=== PATIENT | male | born 1965 | race Two or more races ===

== ENCOUNTER 2018-05-29 06:47 | Day surgery (SDC) | payer MEDICAID ==
[2018-05-27 11:06] LABS: Basophils % (auto) 0.4 % (0.0-2.0); Lymphocytes # (auto) 2.5 uL; Nucleated Red Blood Cells % 0.1 %; Red Cell Distribution Width 12.7 % (11.8-14.3)
[2018-05-27 11:09] LABS: Basophils # (auto) 0 uL; Eosinophils # (auto) 0.2 uL; Eosinophils % (auto) 1.7 % (0.0-7.0); Hematocrit 53.9 % (41.0-53.0); Hemoglobin 18.3 g/dL (13.5-17.5); Lymphocytes % (auto) 20.7 % (10.0-50.0); Mean Corpuscular Hemoglobin 30.6 pg (28.0-32.0); Mean Corpuscular Hgb Conc. 33.9 g/dL (32.0-36.0); Mean Corpuscular Volume 90.1 fL (80.0-100.0); Monocytes # (auto) 0.9 uL; Monocytes % (auto) 7.6 % (0.0-12.0); Neutrophils # (auto) 8.5 uL; Neutrophils % (auto) 69.6 % (37.0-80.0); Platelet Count (auto) 252 10^3/uL (140-450); Red Blood Cells 5.98 10^6/uL (4.5-5.90); White Blood Cell 12.2 10^3/uL (4.4-10.8)
[2018-05-27 11:13] LABS: Urine Bacteria FEW /hpf (None Seen); Urine Blood Negative /uL (Negative); Urine Specific Gravity 1.024 (1.001-1.035); Urine WBC 1 /hpf (0 - 3)
[2018-05-27 11:16] LABS: INR 1.01 (0.9-1.15); Partial Thromboplastin Time 25.7 sec (23.78-33.04); Prothrombin Time 10.8 sec (9.27-12.13)
[2018-05-27 11:29] LABS: Potassium 4.3 mmol/L (3.5-5.1)
[2018-05-27 11:43] LABS: Albumin 3.9 g/dL (3.4-5.0); BUN/Creatinine Ratio 14.8; Bilirubin, Total 1.1 mg/dL (0.2-1.0); Calcium 9.8 mg/dL (8.5-10.1); Total Protein 8.5 g/dL (6.4-8.2)
[~2018-05-29] VITALS: Ht 172.7 cm; Wt 108.9 kg
[~2018-05-29 06:47] MED LIST: HYDR-4683 PO; LISI10TA6 PO; METF-370 PO
[2018-05-29] MEDS ORDERED: CLINDAMYCIN 600MG IV 50 ML IV ONE (07:58)
[2018-05-29] MEDS ORDERED: BUPIVACAINE 0.75% INJ 10ML MPV SDV IJ ONE ×3 (08:31→09:41)
[2018-05-29] MEDS ORDERED: NEOMYCIN-BACITRACIN-POLYM 15GM TOP OINT TOP ONE (08:33)
[2018-05-29] MEDS ORDERED: MIDAZOLAM HCL 1MG/1ML-2 ML VIAL ONE (08:56)
[2018-05-29] MEDS ORDERED: MEPERIDINE HCL (50 MG/ML) 1 ML VIAL ONE (08:56)
[2018-05-29] MEDS ORDERED: DEXAMETHASONE SOD PHOS 10MG/1ML VIAL INJ ONE (09:14)
[2018-05-29] MEDS ORDERED: PROPOFOL 10 MG/ML 20 ML IV ONE (09:14)
[2018-05-29] MEDS ORDERED: SUCCINYLCHOLINE CHLORIDE 20 MG/ML 10ML VIAL IV ONE (09:33)
[2018-05-29 11:00] VITALS: BP 139/87
== END 2018-05-29 11:00 | disposition home or self-care (01) ==
LOC: SUR 06:47
PROVIDERS: ATTEND Podiatrist Foot & Ankle Surgery
DX: M21.072 Valgus deformity, not elsewhere classified, left ankle (principal); M65.4 Radial styloid tenosynovitis [de Quervain]; M89.9 Disorder of bone, unspecified; E66.9 Obesity, unspecified; E11.9 Type 2 diabetes mellitus without complications; I10 Essential (primary) hypertension; Z88.0 Allergy status to penicillin; Z88.1 Allergy status to other antibiotic agents; Z68.36 Body mass index [BMI] 36.0-36.9, adult; Z98.890 Other specified postprocedural states; Z79.84 Long term (current) use of oral hypoglycemic drugs; Z79.899 Other long term (current) drug therapy
CPT/HCPCS: 28113; 28296; J2175; Q4137; 36415; 73630; 80053; 81001; 82962; 85025; 85610; 85730; J0330; J1100; J2250; J2704; J3490

== ENCOUNTER → 2018-09-18 | Day surgery (SDC) | payer MEDICAID ==
[2018-09-16 12:26] LABS: Basophils # (auto) 0 uL; Basophils % (auto) 0.6 % (0.0-2.0); Eosinophils # (auto) 0.2 uL; Hematocrit 47.6 % (41.0-53.0); Hemoglobin 16.4 g/dL (13.5-17.5); Lymphocytes # (auto) 2.1 uL; Lymphocytes % (auto) 25.1 % (10.0-50.0); Mean Corpuscular Hemoglobin 30.6 pg (28.0-32.0); Mean Corpuscular Hgb Conc. 34.4 g/dL (32.0-36.0); Monocytes # (auto) 0.9 uL; Monocytes % (auto) 10.9 % (0.0-12.0); Neutrophils # (auto) 5.2 uL; Neutrophils % (auto) 61.4 % (37.0-80.0); Nucleated Red Blood Cells % 0.1 %; Platelet Count (auto) 229 10^3/uL (140-450); Red Blood Cells 5.35 10^6/uL (4.5-5.90); Red Cell Distribution Width 13.6 % (11.8-14.3); White Blood Cell 8.5 10^3/uL (4.4-10.8)
[2018-09-16 12:38] LABS: Urine Bacteria NONE SEEN /hpf (None Seen); Urine Blood Negative /uL (Negative); Urine Specific Gravity 1.017 (1.001-1.035); Urine WBC 2 /hpf (0 - 3)
[2018-09-16 12:42] LABS: Calcium 8.5 mg/dL (8.5-10.1); Potassium 3.9 mmol/L (3.5-5.1)
[2018-09-16 12:45] LABS: Albumin 3.4 g/dL (3.4-5.0); BUN/Creatinine Ratio 21.8
[2018-09-16 12:46] LABS: INR 1.02 (0.9-1.15); Partial Thromboplastin Time 26.2 sec (23.78-33.04); Prothrombin Time 10.9 sec (9.27-12.13)
[2018-09-16 12:50] LABS: Bilirubin, Total 0.7 mg/dL (0.2-1.0); Total Protein 7.2 g/dL (6.4-8.2)
[~2018-09-18] VITALS: Ht 172.7 cm; Wt 108.9 kg
[~2018-09-18] MED LIST changes: +BUPIVACAINE 0.75% INJ 10ML MPV SDV IJ ONE; +CLINDAMYCIN 600MG IV 50 ML IV ONE; +FENO1TAB42 PO; +GLYB1TAB PO; +GLYCOPYRROLATE 0.2 MG/ML 1ML VIAL ONE; +LIDOCAINE 1% INJ PF 5ML AMP ONE; +METOCLOPRAMIDE HCL 5MG/ml INJ 2ml VIAL ONE; +MIDAZOLAM HCL 1MG/1ML-2 ML VIAL ONE; +OMEP20TA85 PO; +PROPOFOL 10 MG/ML 20 ML IV ONE; +diphenhdrAMINE HCL 50 MG/1 ML VL ONE; +fentaNYL CITRATE 100 MCG/2 ML VL ONE
[2018-09-18 11:59] VITALS: BP 115/76
== END | disposition home or self-care (01) ==
LOC: SUR 09:19 → MERGE 09:19
PROVIDERS: ATTEND Podiatrist Foot & Ankle Surgery
DX: T84.84XA Pain due to internal orthopedic prosthetic devices, implants and grafts, initial encounter (principal); L03.032 Cellulitis of left toe; L60.0 Ingrowing nail; L90.5 Scar conditions and fibrosis of skin; E66.9 Obesity, unspecified; E11.9 Type 2 diabetes mellitus without complications; Z88.0 Allergy status to penicillin; Z88.1 Allergy status to other antibiotic agents; Z68.36 Body mass index [BMI] 36.0-36.9, adult; Z98.890 Other specified postprocedural states; Y83.8 Other surgical procedures as the cause of abnormal reaction of the patient, or of later complication, without mention of misadventure at the time of the procedure; Y92.89 Other specified places as the place of occurrence of the external cause
CPT/HCPCS: 11730; 14040; 20680; J1200; J2765; J3010; J7030; 36415; 80053; 81001; 82962; 85025; 85610; 85730; J2250; J2704; J3490

== ENCOUNTER 2019-01-29 08:47 | Day surgery (SDC) | payer MEDICAID ==
[2019-01-27 12:01] LABS: Basophils # (auto) 0.1 uL; Basophils % (auto) 0.8 % (0.0-2.0); Eosinophils # (auto) 0.1 uL; Eosinophils % (auto) 1.2 % (0.0-7.0); Hemoglobin 17.2 g/dL (13.5-17.5); Lymphocytes # (auto) 2.7 uL; Lymphocytes % (auto) 25.6 % (10.0-50.0); Mean Corpuscular Hemoglobin 29.6 pg (28.0-32.0); Mean Corpuscular Hgb Conc. 33.8 g/dL (32.0-36.0); Mean Corpuscular Volume 87.5 fL (80.0-100.0); Monocytes # (auto) 0.8 uL; Neutrophils # (auto) 6.7 uL; Neutrophils % (auto) 64.4 % (37.0-80.0); Platelet Count (auto) 226 10^3/uL (140-450); Red Blood Cells 5.83 10^6/uL (4.5-5.90); Red Cell Distribution Width 12.9 % (11.8-14.3); White Blood Cell 10.4 10^3/uL (4.4-10.8)
[2019-01-27 12:10] LABS: INR 1.02 (0.9-1.15); Partial Thromboplastin Time 25.5 sec (23.64-32.05)
[2019-01-27 12:23] LABS: Albumin 3.8 g/dL (3.4-5.0); Calcium 9.2 mg/dL (8.5-10.1)
[2019-01-27 12:26] LABS: BUN/Creatinine Ratio 20.6; Bilirubin, Total 0.9 mg/dL (0.2-1.0); Total Protein 7.6 g/dL (6.4-8.2)
[2019-01-27 16:53] LABS: Urine Bacteria NONE SEEN /hpf (None Seen); Urine Blood Negative /uL (Negative); Urine Specific Gravity 1.022 (1.001-1.035); Urine WBC 1 /hpf (0 - 3)
[~2019-01-29] VITALS: Ht 172.7 cm; Wt 108.9 kg
[~2019-01-29 08:47] MED LIST changes: -BUPIVACAINE 0.75% INJ 10ML MPV SDV IJ ONE; -CLINDAMYCIN 600MG IV 50 ML IV ONE; -GLYB1TAB PO; -GLYCOPYRROLATE 0.2 MG/ML 1ML VIAL ONE; -HYDR-4683 PO; -LIDOCAINE 1% INJ PF 5ML AMP ONE; -METF-370 PO; -METOCLOPRAMIDE HCL 5MG/ml INJ 2ml VIAL ONE; -MIDAZOLAM HCL 1MG/1ML-2 ML VIAL ONE; -PROPOFOL 10 MG/ML 20 ML IV ONE; -diphenhdrAMINE HCL 50 MG/1 ML VL ONE; -fentaNYL CITRATE 100 MCG/2 ML VL ONE
[2019-01-29] MEDS ORDERED: ceFAZolin 1GM/50ML 50 ML IV ONE (10:55)
[2019-01-29] MEDS ORDERED: CLINDAMYCIN 600MG IV 50 ML IV ONE (11:00)
[2019-01-29] MEDS ORDERED: fentaNYL CITRATE 100 MCG/2 ML VL ONE (12:32)
[2019-01-29] MEDS ORDERED: SODIUM CHLORIDE LOCK 10 ML ONE (12:32)
[2019-01-29] MEDS ORDERED: ONDANSETRON HCL 4 MG/2 ML VIAL ONE (12:32)
[2019-01-29] MEDS ORDERED: ROPIVACAINE 0.5% (5MG/ML) 20ML AMPULE IJ ONE ×2 (12:56→13:21)
[2019-01-29] MEDS ORDERED: HYDROmorphone HCL 2 MG/ML VL IV PRN (13:00)
[2019-01-29] MEDS ORDERED: ACCU-CHEK COMFORT CURVE STRIP VI ONE (13:00)
[2019-01-29] MEDS ORDERED: KETOROLAC TROMETH 15 mg/ml 1ML VL IV ONE (13:00)
[2019-01-29] MEDS ORDERED: METOCLOPRAMIDE HCL 5MG/ml INJ 2ml VIAL IV ONE (13:00)
[2019-01-29] MEDS ORDERED: MIDAZOLAM HCL 1MG/1ML-2 ML VIAL ONE (13:05)
[2019-01-29 14:31] VITALS: BP 113/55
== END 2019-01-29 14:31 | disposition home or self-care (01) ==
LOC: SUR 08:47
PROVIDERS: ATTEND Podiatrist Foot & Ankle Surgery
DX: M20.11 Hallux valgus (acquired), right foot (principal); M21.611 Bunion of right foot; M20.41 Other hammer toe(s) (acquired), right foot; E11.9 Type 2 diabetes mellitus without complications; I10 Essential (primary) hypertension; E66.9 Obesity, unspecified; Z79.899 Other long term (current) drug therapy; Z98.890 Other specified postprocedural states; Z88.0 Allergy status to penicillin; Z88.1 Allergy status to other antibiotic agents; Z68.36 Body mass index [BMI] 36.0-36.9, adult
CPT/HCPCS: 28285; 28296; 36415; 73620; 80053; 81001; 82962; 85025; 85610; 85730; 93005; C1713; C1769; J0690; J2250; J2405; J2795; J3010; J3490; L3260

== ENCOUNTER → 2019-05-14 | Day surgery (SDC) | payer MEDICAID ==
[2019-05-09 09:56] LABS: Urine WBC None Seen /hpf (0 - 3)
[2019-05-09 10:02] LABS: Basophils # (auto) 0 uL; Basophils % (auto) 0.5 % (0.0-2.0); Eosinophils # (auto) 0.1 uL; Eosinophils % (auto) 1.5 % (0.0-7.0); Hematocrit 50.3 % (41.0-53.0); Hemoglobin 17.6 g/dL (13.5-17.5); Lymphocytes # (auto) 2.8 uL; Lymphocytes % (auto) 29.1 % (10.0-50.0); Mean Corpuscular Hemoglobin 30.4 pg (28.0-32.0); Mean Corpuscular Hgb Conc. 34.9 g/dL (32.0-36.0); Mean Corpuscular Volume 87.1 fL (80.0-100.0); Monocytes # (auto) 0.9 uL; Monocytes % (auto) 9.2 % (0.0-12.0); Neutrophils # (auto) 5.7 uL; Neutrophils % (auto) 59.7 % (37.0-80.0); Platelet Count (auto) 229 10^3/uL (140-450); Red Blood Cells 5.78 10^6/uL (4.5-5.90); Red Cell Distribution Width 13.5 % (11.8-14.3); White Blood Cell 9.6 10^3/uL (4.4-10.8)
[2019-05-09 10:18] LABS: Urine Bacteria NONE SEEN /hpf (None Seen); Urine Blood Negative /uL (Negative); Urine Mucus FEW (None Seen); Urine Specific Gravity 1.026 (1.001-1.035)
[2019-05-09 10:21] LABS: INR 0.99 (0.9-1.15); Partial Thromboplastin Time 25.2 sec (23.64-32.05)
[2019-05-09 10:56] LABS: Albumin 3.7 g/dL (3.4-5.0); Calcium 9.1 mg/dL (8.5-10.1); Potassium 4.3 mmol/L (3.5-5.1)
[2019-05-09 10:59] LABS: BUN/Creatinine Ratio 13.8; Total Protein 7.8 g/dL (6.4-8.2)
[~2019-05-14] VITALS: Ht 172.7 cm; Wt 108.9 kg
[~2019-05-14] MED LIST changes: +ASPI-404 PO; +CLINDAMYCIN 600MG IV 50 ML IV ONE; +GLIP-110 PO; +MIDAZOLAM HCL 1MG/1ML-2 ML VIAL ONE; -OMEP20TA85 PO; +ONDANSETRON HCL 4 MG/2 ML VIAL IV PRN; +PROPOFOL 10 MG/ML 20 ML IV ONE; +ROPIVACAINE 0.5% (5MG/ML) 20ML AMPULE IJ ONE; +ePHEDrine SULFATE 50 MG/ML AMP IV PRN; +fentaNYL CITRATE 100 MCG/2 ML VL IV PRN; +fentaNYL CITRATE 100 MCG/2 ML VL ONE; +hydrALAZINE HCL 20 MG/ML VL IV PRN
[2019-05-14 13:06] VITALS: BP 122/79
== END | disposition home or self-care (01) ==
LOC: SUR 08:48
PROVIDERS: ATTEND Podiatrist Foot & Ankle Surgery
DX: T84.213A Breakdown (mechanical) of internal fixation device of bones of foot and toes, initial encounter (principal); L90.5 Scar conditions and fibrosis of skin; E11.9 Type 2 diabetes mellitus without complications; I10 Essential (primary) hypertension; K21.9 Gastro-esophageal reflux disease without esophagitis; E66.9 Obesity, unspecified; Z79.82 Long term (current) use of aspirin; Z79.899 Other long term (current) drug therapy; Z98.890 Other specified postprocedural states; Z88.0 Allergy status to penicillin; Z88.1 Allergy status to other antibiotic agents; Z79.84 Long term (current) use of oral hypoglycemic drugs; Z68.36 Body mass index [BMI] 36.0-36.9, adult
CPT/HCPCS: 14040; 20680; 36415; 73620; 80053; 81001; 82962; 85025; 85610; 85730; 88300; 88302; J2250; J2405; J2704; J2795; J3010; J3490; J7030

== ENCOUNTER → 2019-05-21 | Outpatient (CLI) | payer MEDICAID ==
[~2019-05-21] MED LIST changes: -CLINDAMYCIN 600MG IV 50 ML IV ONE; -MIDAZOLAM HCL 1MG/1ML-2 ML VIAL ONE; -ONDANSETRON HCL 4 MG/2 ML VIAL IV PRN; -PROPOFOL 10 MG/ML 20 ML IV ONE; -ROPIVACAINE 0.5% (5MG/ML) 20ML AMPULE IJ ONE; -ePHEDrine SULFATE 50 MG/ML AMP IV PRN; -fentaNYL CITRATE 100 MCG/2 ML VL IV PRN; -fentaNYL CITRATE 100 MCG/2 ML VL ONE; -hydrALAZINE HCL 20 MG/ML VL IV PRN
== END | disposition home or self-care (01) ==
LOC: Rad HDHVI 08:58
PROVIDERS: ATTEND Internal Medicine
DX: R00.2 Palpitations (principal); R07.9 Chest pain, unspecified
CPT/HCPCS: 93306